=== PATIENT | male | born 1990 | race Caucasian/White ===

== ENCOUNTER 2021-09-09 16:36 | Emergency (ER) | payer SELFPAY ==
[2021-09-09 16:41] VITALS: BP 164/85; PULSE 104; RESP 18; TEMP 36.5; O2SAT 96; BMI 36.9
--- NOTE | 2021-09-09 18:20 | ED.C_ITS ---
Documented by User: Winston Lora DO 09/09/21 22:17 HPI - Psych General: Chief Complaint: Psychiatric Symptoms Stated Complaint: MHE Time Seen by Provider: 09/09/21 17:39 Source: patient and family Mode of arrival: ambulatory Limitations: no limitations History of Present Illness: This patient comes to the emergency department accompanied by his sister. He states he has been feeling sad and desponded more so over the past couple of weeks. States he is had some thoughts of suicidality but has no specific plan in mind. He states he used to cut himself on his forearm but has not done that for some time. He states he does drink alcohol on a regular basis but denies street drugs. 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 He lives in a in a home by himself. He states he does have a cousin and other relatives to come help him work on his home but they also drink alcohol together. He states he is not had any significant change in his life that might of precipitated his current feelings. He has never had a mental health inpatient treatment. MD complaint: suicidal ideation and feels depressed Duration: getting worse Associated psychiatric symptoms: depression and suicidal ideation Associated symptoms: Reports depression; Deny auditory hallucinations or homicidal ideation Review of Systems Const: Denies: fever(s), chills or body aches Eyes: Denies: change in vision or blurry vision ENMT: Denies: odynophagia or nasal congestion Card: Denies: chest pain, palpitations, irregular heart rhythm or edema Resp: Denies: dyspnea, productive cough or non-productive cough GI: Denies: abdominal pain, nausea or vomiting : Denies: flank pain, difficulty urinating, dysuria or urinary frequency Musc: Denies: neck pain, back pain, extremity pain or extremity swelling Skin/Breast: Denies: rash Neuro: Denies: headache(s), numbness in extremities or weakness in extremities Psych: Reports: depression; Denies: auditory hallucinations, tactile hallucinations or homicidal ideation Endo: Denies: polyuria, polydipsia or tired all the time [facility] ED PFSH: Social History Smoking and tobacco status: never smoked Alcohol intake: current Physical Exam Narrative: EXAM NARRATIVE: Generally makes good eye contact. He does answer questions in a generally goal- directed fashion but does tend to ruminate a bit. He appears to be comfortable and calm. Const: COMMON NORMALS: no acute distress, patient oriented x3 and alert GENERAL APPEARANCE: cooperative ORIENTATION/CONSCIOUSNESS: Yes oriented to person and Yes oriented to place HENMT: COMMON NORMALS: normocephalic, atraumatic and moist oral mucous membranes HEAD & SCALP: normocephalic and atraumatic Eye: COMMON NORMALS: Equal, round and reactive pupils present and EOMs intact bilaterally PUPIL: Yes Equal, round and reactive pupils present Neck/C-Spine: COMMON NORMALS: full ROM GENERAL: Yes normal visual inspection Chest: COMMONS NORMALS: normal inspection of the chest Resp: COMMON NORMALS: normal respiratory effort EFFORT & INSPECTION: Yes able to speak in complete sentences Cardio: COMMON NORMALS: regular rate and regular rhythm RATE: regular rate RHYTHM: regular rhythm GI: COMMON NORMALS: Normal to inspection, nondistended, normoactive bowel sounds present : COMMON NORMALS: Yes no CVA tenderness BLADDER/KIDNEY EXAM: Yes no CVA tenderness Back/Pelvis: COMMON NORMALS: no CVA tenderness and thoraco-lumbar ROM normal Extremity: COMMON NORMALS: normal to inspection and full ROM Neuro: COMMON NORMALS: patient oriented x3, moves all extremities, no focal motor deficits and gait normal SENSORIUM/ORIENTATION: Yes alert, Yes oriented to person and Yes oriented to place SPEECH: speech normal GAIT: Yes Normal gait present Psych: COMMON NORMALS: cooperative, denies hallucinations and denies homicidal ideation ATTITUDE: Yes evasive SPEECH: Yes minimal MOOD & AFFECT: Yes depressed mood and Yes Flat affect present THOUGHT PROCESS: Circumstantial thought process present and disorganized INSIGHT: Limited insight present (Psych) Skin: COMMON NORMALS: no rashes or lesions noted GENERAL SKIN EXAM: no rashes or lesions noted Course Reevaluation(s): Reevaluation #1: Patient's blood alcohol is significantly elevated greater than 300 mg percent. We will go ahead and repeat another blood alcohol level in approximately 6 hours to determine at that time whether he will be medically screened for mental health placement. Time: 20:26 Reevaluation #2: Patient remained cooperative and stable. I discussed plan with Dr. Pena overnight emergency physician. The plan will be to repeat a blood alcohol level at that time reassess the patient for continued feelings of's sadness and depression. Should the patient still of similar ongoing feelings then mental health placement will be necessary once he is blood alcohol is below the threshold. Time: 22:16 Vital Signs: Vital signs: Vital Signs Temperature 98.5 F 09/09/21 19:49 Pulse Rate 87 09/10/21 07:05 Respiratory Rate 18 09/10/21 08:11 Blood Pressure 165/99 09/10/21 07:05 Pulse Oximetry 96 09/10/21 07:05 Oxygen Delivery Me thod 09/10/21 07:05 MDM - Psych Medical Decision Making This patient was accompanied by his sister to the emergency department because jarrod lemos is somewhat melancholy recently. He has no specific suicidal plan. He has not never had a prior suicide attempt but has done some cutting superficially on his left forearm in the past. He admits to regular alcohol use. The patient's suicidality at this point is seemingly low but will need to be evaluated with a medical screening laboratories and then determine at that time eligibility and suitability for additional mental health evaluation. Lab Data I reviewed the patient's lab results. : 09/09/21 19:15 09/09/21 19:15 Laboratory Results WBC 5.7 10^3/uL (4.0-10.0) 09/09/21 19:15 RBC 5.67 10^6/uL (4.1-5.3) H 09/09/21 19:15 Hgb 17.4 g/dL (11.7-16.6) H 09/09/21 19:15 Hct 50.2 % (42.0-52.0) 09/09/21 19:15 MCV 88.5 fl (80-94) 09/09/21 19:15 MCH 30.7 pg (28.0-34.0) 09/09/21 19:15 MCHC 34.7 g/dL (30.0-36.0) 09/09/21 19:15 RDW 12.1 % (12.1-15.1) 09/09/21 19:15 Plt Count 278 10^3/cmm (130-400) 09/09/21 19:15 MPV 10.0 fL (7.4-10.4) 09/09/21 19:15 Neut % (Auto) 48.8 % 09/09/21 19:15 Lymph % (Auto) 40.6 % 09/09/21 19:15 [place] % (Auto) 8.6 % 09/09/21 19:15 Eos % (Auto) 0.7 % 09/09/21 19:15 Baso % (Auto) 1.1 % 09/09/21 19:15 Neut # (Auto) 2.78 10^3/uL (1.8-7.7) 09/09/21 19:15 Lymph # (Auto) 2.3 10^3/uL (0.8-4.8) 09/09/21 19:15 [place] # (Auto) 0.5 10^3/uL (0.2-0.9) 09/09/21 19:15 Eos # (Auto) 0.0 10^3/uL (0.0-0.8) 09/09/21 19:15 Baso # (Auto) 0.1 10^3/uL (0.0-0.1) 09/09/21 19:15 Nucleated RBC % (auto) 0 % 09/09/21 19:15 Nucleated RBCs # 0.0 /100WBC 09/09/21 19:15 Sodium 144 mmol/L (136-145) 09/09/21 19:15 Potassium 3.4 mmol/L (3.5-5.1) L 09/09/21 19:15 Chloride 105 mmol/L (98-107) 09/09/21 19:15 Carbon Dioxide 25 mmol/L (22-29) 09/09/21 19:15 Anion Gap 17.4 (5-19) 09/09/21 19:15 BUN 5 mg/dL (6-20) L 09/09/21 19:15 Creatinine 0.5 mg/dL (0.7-1.2) L 09/09/21 19:15 GFR Calculation 198.0 mL/min (90-130) H 09/09/21 19:15 Glucose 133 mg/dL (65-115) H 09/09/21 19:15 Calculated Osmolality 297 mOsm/kg (285-295) H 09/09/21 19:15 Calcium 8.7 mg/dL (8.5-10.5) 09/09/21 19:15 Total Bilirubin 0.6 mg/dL (0.15-1.2) 09/09/21 19:15 AST 49 U/L (0-40) H 09/09/21 19:15 ALT 67 U/L (0-41) H 09/09/21 19:15 Alkaline Phosphatase 60 IU/L (40-130) 09/09/21 19:15 Total Protein 7.5 g/dL (6.6-8.7) 09/09/21 19:15 Albumin 4.7 g/dL (3.5-5.2) 09/09/21 19:15 Globulin 2.8 g/dL (1.3-4.6) 09/09/21 19:15 Salicylates < 0.3 mg/dL (3-10) L 09/09/21 19:15 Urine Opiates Screen Negative ng/mL (Negative) 09/09/21 18:41 Acetaminophen < 5.0 ug/mL (10-30) L 09/09/21 19:15 Ur Barbiturates Screen Negative ng/mL (Negative) 09/09/21 18:41 Ur Phencyclidine Scrn Negative ng/mL (Negative) 09/09/21 18:41 Ur Amphetamines Screen Negative ng/mL (Negative) 09/09/21 18:41 U Benzodiazepines Scrn Negative ng/mL (Negative) 09/09/21 18:41 Urine Cocaine Screen Negative ng/mL (Negative) 09/09/21 18:41 U Marijuana (THC) Screen Positive ng/mL (Negative) H 09/09/21 18:41 Ethyl Alcohol 114 mg/dL (0-10) H 09/10/21 02:10 SARS-CoV-2 Ag (Rapid) Negative (Negative) 09/09/21 19:49 Discharge Plan Discharge Patient Disposition: Home Clinical Impression: Chronic alcohol use, Depression Condition: Stable Prescriptions: No Action Tylenol Ex Str Rapid Release 500 mg Tablet 1,000 mg PO Q4H PRN (Reason: Pain) Discharge Orders: Discharge ED (Routine); Ordered 09/10/21 Ordered By: Brandin Henry Discharge Diet: Usual diet Discharge Activity: Resume usual activity Patient Instructions: Abuse of Alcohol (ED), Opioid Safety Sign Out Sign Out Data: Patient Sign Out occurred on 09/10/21 at 06:49. Patient's care was discussed, and care was transferred from to Brandin Henry DO. Coding Level of Care Code ED [facility] Fwd Exam Comprehensive Documented by User: Anil Pena DO 09/10/21 05:46 HPI - Psych General: Chief Complaint: Psychiatric Symptoms Stated Complaint: MHE Time Seen by Provider: 09/09/21 17:39 PFSH ED PFSH: Social History Smoking and tobacco status: never smoked Alcohol intake: current Course Vital Signs: Vital signs: Vital Signs Temperature 98.5 F 09/09/21 19:49 Pulse Rate 87 09/10/21 07:05 Respiratory Rate 18 09/10/21 08:11 Blood Pressure 165/99 09/10/21 07:05 Pulse Oximetry 96 09/10/21 07:05 Oxygen Delivery Me thod 09/10/21 07:05 MDM - Psych Medical Decision Making This patient was accompanied by his sister to the emergency department because he is somewhat melancholy recently. He has no specific suicidal plan. He has not never had a prior suicide attempt but has done some cutting superficially on his left forearm in the past. He admits to regular alcohol use. The patient's suicidality at this point is seemingly low but will need to be evaluated with a medical screening laboratories and then determine at that time eligibility and suitability for additional mental health evaluation. 30-year-old male checked out to me by Dr. Lora at shift change. This gentl eman is now quite sober. He has been resting all night. His alcohol level is below 100 at this point. He states that he has been having suicidal thoughts essentially at least weekly for quite some time. He endorses these thoughts still to some degree. He has no specific plan. Medically, he is stable at this point. Laboratory is benign otherwise. Spoke with psychiatry, as our unit here is full, and we are holding 1 patient. Psychiatrist will call us back at 7 AM, when he gets a sense of the census and any potential discharges to determine whether transfer versus if a bed may open up here. Lab Data : 09/09/21 19:15 09/09/21 19:15 Laboratory Results WBC 5.7 10^3/uL (4.0-10.0) 09/09/21 19:15 RBC 5.67 10^6/uL (4.1-5.3) H 09/09/21 19:15 Hgb 17.4 g/dL (11.7-16.6) H 09/09/21 19:15 Hct 50.2 % (42.0-52.0) 09/09/21 19:15 MCV 88.5 fl (80-94) 09/09/21 19:15 MCH 30.7 pg (28.0-34.0) 09/09/21 19:15 MCHC 34.7 g/dL (30.0-36.0) 09/09/21 19:15 RDW 12.1 % (12.1-15.1) 09/09/21 19:15 Plt Count 278 10^3/cmm (130-400) 09/09/21 19:15 MPV 10.0 fL (7.4-10.4) 09/09/21 19:15 Neut % (Auto) 48.8 % 09/09/21 19:15 Lymph % (Auto) 40.6 % 09/09/21 19:15 [place] % (Auto) 8.6 % 09/09/21 19:15 Eos % (Auto) 0.7 % 09/09/21 19:15 Baso % (Auto) 1.1 % 09/09/21 19:15 Neut # (Auto) 2.78 10^3/uL (1.8-7.7) 09/09/21 19:15 Lymph # (Auto) 2.3 10^3/uL (0.8-4.8) 09/09/21 19:15 [place] # (Auto) 0.5 10^3/uL (0.2-0.9) 09/09/21 19:15 Eos # (Auto) 0.0 10^3/uL (0.0-0.8) 09/09/21 19:15 Baso # (Auto) 0.1 10^3/uL (0.0-0.1) 09/09/21 19:15 Nucleated RBC % (auto) 0 % 09/09/21 19:15 Nucleated RBCs # 0.0 /100WBC 09/09/21 19:15 Sodium 144 mmol/L (136-145) 09/09/21 19:15 Potassium 3.4 mmol/L (3.5-5.1) L 09/09/21 19:15 Chloride 105 mmol/L (98-107) 09/09/21 19:15 Carbon Dioxide 25 mmol/L (22-29) 09/09/21 19:15 Anion Gap 17.4 (5-19) 09/09/21 19:15 BUN 5 mg/dL (6-20) L 09/09/21 19:15 Creatinine 0.5 mg/dL (0.7-1.2) L 09/09/21 19:15 GFR Calculation 198.0 mL/min (90-130) H 09/09/21 19:15 Glucose 133 mg/dL (65-115) H 09/09/21 19:15 Calculated Osmolality 297 mOsm/kg (285-295) H 09/09/21 19:15 Calcium 8.7 mg/dL (8.5-10.5) 09/09/21 19:15 Total Bilirubin 0.6 mg/dL (0.15-1.2) 09/09/21 19:15 AST 49 U/L (0-40) H 09/09/21 19:15 ALT 67 U/L (0-41) H 09/09/21 19:15 Alkaline Phosphatase 60 IU/L (40-130) 09/09/21 19:15 Total Protein 7.5 g/dL (6.6-8.7) 09/09/21 19:15 Albumin 4.7 g/dL (3.5-5.2) 09/09/21 19:15 Globulin 2.8 g/dL (1.3-4.6) 09/09/21 19:15 Salicylates < 0.3 mg/dL (3-10) L 09/09/21 19:15 Urine Opiates Screen Negative ng/mL (Negative) 09/09/21 18:41 Acetaminophen < 5.0 ug/mL (10-30) L 09/09/21 19:15 Ur Barbiturates Screen Negative ng/mL (Negative) 09/09/21 18:41 Ur Phencyclidine Scrn Negative ng/mL (Negative) 09/09/21 18:41 Ur Amphetamines Screen Negative ng/mL (Negative) 09/09/21 18:41 U Benzodiazepines Scrn Negative ng/mL (Negative) 09/09/21 18:41 Urine Cocaine Screen Negative ng/mL (Negative) 09/09/21 18:41 U Marijuana (THC) Screen Positive ng/mL (Negative) H 09/09/21 18:41 Ethyl Alcohol 114 mg/dL (0-10) H 09/10/21 02:10 SARS-CoV-2 Ag (Rapid) Negative (Negative) 09/09/21 19:49 Discharge Plan Discharge Patient Disposition: Home Clinical Impression: Chronic alcohol use, Depression Condition: Stable Prescriptions: No Action Tylenol Ex Str Rapid Release 500 mg Tablet 1,000 mg PO Q4H PRN (Reason: Pain) Discharge Orders: Discharge ED (Routine); Ordered 09/10/21 Ordered By: Brandin Henry Discharge Diet: Usual diet Discharge Activity: Resume usual activity Patient Instructions: Abuse of Alcohol (ED), Opioid Safety Sign Out Sign Out Data: Patient Sign Out occurred on 09/10/21 at 06:49. Patient's care was discussed, and care was transferred from to Brandin Henry DO. Coding Level of Care Code ED [facility] F[facility] Exam Comprehensive Documented by User: Brandin Henry DO 09/11/21 05:59 HPI - Psych General: Chief Complaint: Psychiatric Symptoms Stated Complaint: MHE Time Seen by Provider: 09/09/21 17:39 PFSH ED PFSH: Social History Smoking and tobacco status: never smoked Alcohol intake: current Course Vital Signs: Vital signs: Vital Signs Temperature 98.5 F 09/09/21 19:49 Pulse Rate 87 09/10/21 07:05 Respiratory Rate 18 09/10/21 08:11 Blood Pressure 165/99 09/10/21 07:05 Pulse Oximetry 96 09/10/21 07:05 Oxygen Delivery Me thod 09/10/21 07:05 MDM - Psych Medical Decision Making This patient was accompanied by his sister to the emergency department because he is somewhat melancholy recently. He has no specific suicidal plan. He has not never had a prior suicide attempt but has done some cutting superficially on his left forearm in the past. He admits to regular alcohol use. The patient's suicidality at this point is seemingly low but will need to be evaluated with a medical screening laboratories and then determine at that time eligibility and suitability for additional mental health evaluation. 30-year-old male checked out to me by Dr. Lora at shift change. This gentleman is now quite sober. He has been resting all night. His alcohol level is below 100 at this point. He states that he has been having suicidal thoughts essentially at least weekly for quite some time. He endorses these thoughts still to some degree. He has no specific plan. Medically, he is stable at this point. Laboratory is benign otherwise. Spoke with psychiatry, as our unit here is full, and we are holding 1 patient. Psychiatrist will call us back at 7 AM, when he gets a sense of the census and any potential discharges to determine whether transfer versus if a bed may open up here. Care assumed at change of shift 6 AM 09/10/2021. Discussed with Dr. Gregory. Tonya monet is awake and alert denies any suicidal ideation. He admits to chronic alcohol abuse. We will go ahead and discharge her home. Psychiatry agrees with plan. Refer him to outpatient substance abuse programs. At this time patient is neither suicidal or homicidal. Encourage abstinence from alcohol. Lab Data : 09/09/21 19:15 09/09/21 19:15 Laboratory Results WBC 5.7 10^3/uL (4.0-10.0) 09/09/21 19:15 RBC 5.67 10^6/uL (4.1-5.3) H 09/09/21 19:15 Hgb 17.4 g/dL (11.7-16.6) H 09/09/21 19:15 Hct 50.2 % (42.0-52.0) 09/09/21 19:15 MCV 88.5 fl (80-94) 09/09/21 19:15 MCH 30.7 pg (28.0-34.0) 09/09/21 19:15 MCHC 34.7 g/dL (30.0-36.0) 09/09/21 19:15 RDW 12.1 % (12.1-15.1) 09/09/21 19:15 Plt Count 278 10^3/cmm (130-400) 09/09/21 19:15 MPV 10.0 fL (7.4-10.4) 09/09/21 19:15 Neut % (Auto) 48.8 % 09/09/21 19:15 Lymph % (Auto) 40.6 % 09/09/21 19:15 [place] % (Auto) 8.6 % 09/09/21 19:15 Eos % (Auto) 0.7 % 09/09/21 19:15 Baso % (Auto) 1.1 % 09/09/21 19:15 Neut # (Auto) 2.78 10^3/uL (1.8-7.7) 09/09/21 19:15 Lymph # (Auto) 2.3 10^3/uL (0.8-4.8) 09/09/21 19:15 [place] # (Auto) 0.5 10^3/uL (0.2-0.9) 09/09/21 19:15 Eos # (Auto) 0.0 10^3/uL (0.0-0.8) 09/09/21 19:15 Baso # (Auto) 0.1 10^3/uL (0.0-0.1) 09/09/21 19:15 Nucleated RBC % (auto) 0 % 09/09/21 19:15 Nucleated RBCs # 0.0 /100WBC 09/09/21 19:15 Sodium 144 mmol/L (136-145) 09/09/21 19:15 Potassium 3.4 mmol/L (3.5-5.1) L 09/09/21 19:15 Chloride 105 mmol/L (98-107) 09/09/21 19:15 Carbon Dioxide 25 mmol/L (22-29) 09/09/21 19:15 Anion Gap 17.4 (5-19) 09/09/21 19:15 BUN 5 mg/dL (6-20) L 09/09/21 19:15 Creatinine 0.5 mg/dL (0.7-1.2) L 09/09/21 19:15 GFR Calculation 198.0 mL/min (90-130) H 09/09/21 19:15 Glucose 133 mg/dL (65-115) H 09/09/21 19:15 Calculated Osmolality 297 mOsm/kg (285-295) H 09/09/21 19:15 Calcium 8.7 mg/dL (8.5-10.5) 09/09/21 19:15 Total Bilirubin 0.6 mg/dL (0.15-1.2) 09/09/21 19:15 AST 49 U/L (0-40) H 09/09/21 19:15 ALT 67 U/L (0-41) H 09/09/21 19:15 Alkaline Phosphatase 60 IU/L (40-130) 09/09/21 19:15 Total Protein 7.5 g/dL (6.6-8.7) 09/09/21 19:15 Albumin 4.7 g/dL (3.5-5.2) 09/09/21 19:15 Globulin 2.8 g/dL (1.3-4.6) 09/09/21 19:15 Salicylates < 0.3 mg/dL (3-10) L 09/09/21 19:15 Urine Opiates Screen Negative ng/mL (Negative) 09/09/21 18:41 Acetaminophen < 5.0 ug/mL (10-30) L 09/09/21 19:15 Ur Barbiturates Screen Negative ng/mL (Negative) 09/09/21 18:41 Ur Phencyclidine Scrn Negative ng/mL (Negative) 09/09/21 18:41 Ur Amphetamines Screen Negative ng/mL (Negative) 09/09/21 18:41 U Benzodiazepines Scrn Negative ng/mL (Negative) 09/09/21 18:41 Urine Cocaine Screen Negative ng/mL (Negative) 09/09/21 18:41 U Marijuana (THC) Screen Positive ng/mL (Negative) H 09/09/21 18:41 Ethyl Alcohol 114 mg/dL (0-10) H 09/10/21 02:10 SARS-CoV-2 Ag (Rapid) Negative (Negative) 09/09/21 19:49 Discharge Plan Discharge Patient Disposition: Home Clinical Impression: Chronic alcohol use, Depression Condition: Stable Prescriptions: No Action Tylenol Ex Str Rapid Release 500 mg Tablet 1,000 mg PO Q4H PRN (Reason: Pain) Discharge Orders: Discharge ED (Routine); Ordered 09/10/21 Ordered By: Brandin eHnry Discharge Diet: Usual diet Discharge Activity: Resume usual activity Patient Instructions: Abuse of Alcohol (ED), Opioid Safety Sign Out Sign Out Data: Patient Sign Out occurred on 09/10/21 at 06:49. Patient's care was discussed, and care was transferred from to Brandin Henry DO. Coding Level of Care Code ED [facility] Fwd Exam Comprehensive
[2021-09-09 19:00] LABS: Amphetamines Screen Urine Negative (Negative); Barbiturates Screen Urine Negative (Negative); Benzodiazepines Screen Urine Negative (Negative); Cocaine Screen Urine Negative (Negative); Opiate Screen Urine Negative (Negative); PCP Screen Urine Negative (Negative); THC Screen Urine Positive (Negative)
[2021-09-09 19:28] LABS: Basophils # 0.1 10^3/uL (0.0-0.1); Basophils % 1.1 %; Eosinophils % 0.7 %; Hematocrit 50.2 % (42.0-52.0); Hemoglobin 17.4 g/dL (11.7-16.6); Lymphocytes # 2.3 10^3/uL (0.8-4.8); Lymphocytes % 40.6 %; Mean Corpuscular HGB Conc 34.7 g/dL (30.0-36.0); Mean Corpuscular Hemoglobin 30.7 pg (28.0-34.0); Mean Corpuscular Volume 88.5 fl (80-94); Monocytes # 0.5 10^3/uL (0.2-0.9); Monocytes % 8.6 %; Neutrophils # 2.78 10^3/uL (1.8-7.7); Neutrophils % 48.8 %; Nucleated Red Blood Cells % 0 %; Platelet Count 278 10^3/cmm (130-400); Red Blood Count 5.67 10^6/uL (4.1-5.3); Red Cell Distribution Width 12.1 % (12.1-15.1); White Blood Count 5.7 10^3/uL (4.0-10.0)
[2021-09-09 19:49] VITALS: BP 151/65; PULSE 120; RESP 18; TEMP 36.9; O2SAT 92
[2021-09-09 19:51] LABS: Alanine Aminotransferase 67 U/L (0-41); Albumin Level 4.7 g/dL (3.5-5.2); Alkaline Phosphatase 60 IU/L (40-130); Anion Gap 17.4 (5-19); Aspartate Amino Transferase 49 U/L (0-40); Blood Urea Nitrogen 5 mg/dL (6-20); Calcium 8.7 mg/dL (8.5-10.5); Carbon Dioxide 25 mmol/L (22-29); Chloride 105 mmol/L (98-107); Globulin 2.8 g/dL (1.3-4.6); Glucose 133 mg/dL (65-115); Osmolality Calculated 297 mOsm/kg (285-295); Potassium 3.4 mmol/L (3.5-5.1); Sodium 144 mmol/L (136-145); Total Bilirubin 0.6 mg/dL (0.15-1.2); Total Protein 7.5 g/dL (6.6-8.7)
[2021-09-09 20:04] LABS: Acetaminophen < 5.0 ug/mL (10-30); Salicylate < 0.3 mg/dL (3-10)
[2021-09-09 20:05] LABS: Alcohol Level 323 mg/dL (0-10)
[2021-09-09 20:18] LABS: SARS Covid-2 Antigen Negative (Negative)
[2021-09-10 00:30] VITALS: PULSE 77; RESP 16
[2021-09-10 02:15] VITALS: RESP 17
[2021-09-10 02:42] LABS: Alcohol Level 114 mg/dL (0-10)
--- NOTE | 2021-09-10 06:45 | PC.NURSE ---
Report received from ITZ Dang. Laurence reports that the patient was suicidal last night when he came in this morning. Patient did not have a sitter at this time. This RN reported to charge nurse patient needs a sitter. Patient moved to room 8 so that a sitter could set with patient.
[2021-09-10 07:05] VITALS: BP 165/99; PULSE 87; RESP 18; O2SAT 96
[2021-09-10 08:11] VITALS: RESP 18
--- NOTE | 2021-09-10 09:25 | PC.NURSE ---
Attempted to call sister to come get patient. Christel the patient sister did not answer, message left. Will attempt to try to call back again. Will discharge patient when patient has a ride.
--- NOTE | 2021-09-10 09:51 | PC.NURSE ---
Tried to call patients sister again but no answer. Talked to patient and he said I could try to call his mom. Attempted to call his mother but no answer, message left.
--- NOTE | 2021-09-10 09:55 | PC.NURSE ---
Patient asked me to call his cousin Yessenia. Patients cousin answered and reported she would be able to come get patient but it would take about 45 minutes to an hour. Patient will be discharged once his cousin arrives.
== END 2021-09-10 10:10 | disposition home or self-care (01) ==
PROVIDERS: Emergency Medicine; Emergency Provider Family Medicine
DX: F32.A Depression, unspecified (principal); Z72.89 Other problems related to lifestyle; Z20.822 Contact with and (suspected) exposure to COVID-19
CPT/HCPCS: 36415; 80053; 80306; 80307; 85025; 87426; 99285